=== PATIENT | female | born 2000 | race Caucasian/White ===

== ENCOUNTER 2022-04-13 12:04 | Emergency (ER) | payer BC ==
[~2022-04-13] VITALS: Ht 170.2 cm; Wt 75.3 kg
[2022-04-13 12:09] VITALS: BP_SYST 106
[2022-04-13] MEDS ORDERED: NACL 0.9% 2,000 ML IV ONE (12:15)
[2022-04-13 12:31] VITALS: BP_SYST 123
[2022-04-13 12:48] LABS: BASOPHILS # (AUTO) 0.1 K/uL (0.0-0.2); BASOPHILS % (AUTO) 0.7 % (0.0-2.0); EOSINOPHILS % (AUTO) 0.4 % (0.0-4.0); HEMATOCRIT 38.5 % (36-48); HEMOGLOBIN 12.9 g/dL (12.0-16.0); LYMPHOCYTES # (AUTO) 1.5 K/uL (1.0-5.5); LYMPHOCYTES % (AUTO) 18.7 % (20.5-51.5); MEAN CORPUSCULAR HEMOGLOBIN 29 pg (27-31); MEAN CORPUSCULAR HGB CONC 34 % (32-36); MEAN CORPUSCULAR VOLUME 85 fL (79.0-98.0); MONOCYTES # (AUTO) 0.3 K/uL (0.0-1.0); MONOCYTES % (AUTO) 3.8 % (1.7-9.3); NEUTROPHILS % (AUTO) 76.4 % (40.0-70.0); PLATELET COUNT (AUTO) 354 K/uL (130-430); RED BLOOD CELL COUNT(AUTO) 4.52 MIL/uL (4.2-6.2); RED CELL DISTRIBUTION WIDTH 13.2 % (9.0-15.0); WHITE BLOOD COUNT (AUTO) 7.8 K/uL (4.5-11.0)
[2022-04-13 13:09] LABS: CALCIUM 8.8 mg/dL (8.4-11.0); CREATININE 0.74 mg/dL (0.55-1.30)
[2022-04-13 13:14] LABS: TOTAL BILIRUBIN 0.5 mg/dL (0.0-1.0)
[2022-04-13] MEDS ORDERED: DIAZEPAM 5 MG TABLET (VALIUM) PO ONE (13:15)
[2022-04-13] MEDS ORDERED: TRAM50TA2 PO (15:21)
[2022-04-13] MEDS ORDERED: METH-800 PO (15:21)
[2022-04-13] MEDS ORDERED: IBUP-1969 PO (15:21)
[2022-04-13] MEDS ORDERED: NACL 0.9% 1,000 ML IV ONE (15:30)
[2022-04-13] MEDS ORDERED: KETOROLAC TROMETHAMINE 15 MG VIAL IVP ONE (16:00)
== END 2022-04-13 16:46 | disposition home or self-care (01) ==
LOC: SED 12:04
DX: S39.012A Strain of muscle, fascia and tendon of lower back, initial encounter (principal); R55 Syncope and collapse; E86.0 Dehydration; R42 Dizziness and giddiness; Z79.899 Other long term (current) drug therapy; X50.0XXA Overexertion from strenuous movement or load, initial encounter; Y93.89 Activity, other specified; Y92.89 Other specified places as the place of occurrence of the external cause; Y99.8 Other external cause status
CPT/HCPCS: 99284; 96374; 71045; 96361; 80053; 85025; 36415; 72100; 81025; 83605; J1885; J7030